=== PATIENT | male | born 2000 | race Hispanic/Latino ===

== ENCOUNTER 2024-05-04 01:24 | Emergency (ER) | payer OTHER, SELFPAY ==
--- OUTSIDE RECORDS SUMMARY | 2024-05-04 01:28 | XMS REPORT | Continuity of Care Document ---
Author Name Unknown Address [address] [place] [address] [address] [place] [address] [address] [facility] Address [address] [facility] 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 Ordering Clinician Indication Dosage Frequency Signature (SIG) Comments Components Source amlodipine 5 mg tablet 07-15 00:00: 00 Yes 1mg Sandeep Parra Unithroid 125 mcg tablet 07-15 00:00: 00 Yes 1mcg Sandeep Parra amlodipine 5 mg tablet - 00:00: 00 Yes mg Sandeep Parra Unithroid 125 mcg tablet 1- 00:00: 00 Yes mcg Sandeep Parra TAKE 1 TABLET BY MOUTH EVERY DAY 2022-02 0 00:00: 00 Yes 5 Sandeep Parra UNITHROID 125MCG 2022-02 0-23 00:00: 00 Yes Sandeep Parra UNITHROID 125MCG 07-24 00:00: 00 Yes Sandeep Parra TAKE 1 TABLET BY MOUTH EVERY DAY - 00:00: 00 03-23 00:00 :00 No 125 Sandeep Parra TAKE 1 TABLET BY MOUTH EVERY DAY 6- 00:00: 00 03-23 00:00 :00 No 5 Sandeep Parra LEVOTHYROXI N 125MCG 3-25 00:00: 00 Yes [id number] Sandeep Parra TAKE 1 TABLET BY MOUTH EVERY DAY 3-09 00:00: 00 03-23 00:00 :00 No 5 Sandeep Deb Parra TAKE 1 TABLET BY MOUTH EVERY DAY -09 00:00: 00 03-23 00:00 :00 No 125 Sandeep Parra TAKE 1 TABLET BY MOUTH EVERY DAY 2-23 00:00: 00 03-23 00:00 :00 No 5 Sandeep Parra TAKE 1 TABLET BY MOUTH TWICE A DAY WITH FOOD 0 1-11 00:00: 00 Yes Sandeep Parra AMLODIPINE 5MG 1-05 00:00: 00 03-23 00:00 :00 No 5 Sandeep Parra TAKE 1 TABLET BY MOUTH EVERY DAY 1- 00:00: 00 Yes Sandeep Deb Parra Dose Unknown 2021-02 2-13 00:00: 00 Yes Sandeep Parra TAKE 1 TABLET DAILY. 2021-02 2- 00:00: 00 03-23 00:00 :00 No Sandeep Deb Parra Dose Unknown 2021-02 2-13 00:00: 00 03-23 00:00 :00 No Sandeep F Fidel Dose Unknown 2021-02 2-13 00:00: 00 03-23 00:00 :00 No Sandeep F Fidel Dose Unknown 2021-02 2-08 00:00: 00 Yes Sandeep Deb Parra Dose Unknown 8-31 00:00: 00 Yes Sandeep Deb Parra Dose Unknown 8-08 00:00: 00 Yes Sandeep Parra levothyroxi ne 125 mcg tablet 0 9-17 00:00: 00 Yes 1mcg Sandeep Parra levothyroxi ne 125 mcg tablet 0 7-21 00:00: 00 Yes 1mcg Sandeep Parra Protonix 40 mg tablet,krishna yed release 5-07 00:00: 00 Yes 1mg Sandeep Parra levothyroxi ne 125 mcg tablet 0 5-07 00:00: 00 Yes 1mcg Sandeep Parra Vital Signs Vital Name Observation Time Observation Value Comments S ource Weight Measured 2023-07-16 10:13:00 253.20 pounds Sandeep Deb Fidel Height Measured 2023-07-16 10:13:00 69.88 inches Sandeep Parra Body Temperature 2023-07-16 10:13:00 98.30 degrees Sandeep F Fidel Heart Rate 2023-07-16 10:13:00 98.00 /min Liberty en F Fidel Respiratory Rate 2023-07-16 10:13:00 18.00 /min Sandeep F Fidel BP Systolic 2023-07-16 10:13:00 140 mm[Hg] Step hen F Fidel BP Diastolic 2023-07-16 10:13:00 95 mm[Hg] Joe phen F Fidel BP Systolic 2022-12-15 13:30:00 130 mm[Hg] Step hen F Fidel BP Diastolic 2022-12-15 13:30:00 85 mm[Hg] Joe phen F Fidel Weight Measured 2022-12-15 13:30:00 250.40 pounds Sandeep F Fidel Height Measured 2022-12-15 13:30:00 69.88 inches Sandeep F Fidel Body Temperature 2022-12-15 13:30:00 98.10 degrees Sandeep F Fidel Heart Rate 2022-12-15 13:30:00 104.00 /min Step hen F Fidel Respiratory Rate 2022-12-15 13:30:00 19.00 /min Sandeep F Fidel BP Systolic 2022-07-24 09:28:00 136 mm[Hg] Step hen F Fidel BP Diastolic 2022-07-24 09:28:00 87 mm[Hg] Joe phen F Fidel Weight Measured 2022-07-24 09:28:00 253.80 pounds Sandeep F Fidel Height Measured 2022-07-24 09:28:00 69.88 inches Sandeep F Fidel Body Temperature 2022-07-24 09:28:00 98.20 degrees Sandeep F Fidel Heart Rate 2022-07-24 09:28:00 82.00 /min Liberty en F Fidel Respiratory Rate 2022-07-24 09:28:00 17.00 /min Sandeep F Fidel BP Systolic 2022-04-26 09:28:00 138 mm[Hg] Step hen F Fidel BP Diastolic 2022-04-26 09:28:00 93 mm[Hg] Joe phen F Fidel Weight Measured 2022-04-26 09:28:00 254.80 pounds Sandeep F Fidel Height Measured 2022-04-26 09:28:00 69.88 inches Sandeep F Fidel Body Temperature 2022-04-26 09:28:00 98.30 degrees Sandeep F Fidel Heart Rate 2022-04-26 09:28:00 98.00 /min Liberty en F Fidel Respiratory Rate 2022-04-26 09:28:00 17.00 /min Sandeep F Fidel BP Systolic 2022-01-30 08:22:00 147 mm[Hg] Step hen F Fidel BP Diastolic 2022-01-30 08:22:00 100 mm[Hg] Joe phen F Fidel Weight Measured 2022-01-30 08:22:00 252.20 pounds Sandeep F Fidel Height Measured 2022-01-30 08:22:00 69.88 inches Sandeep F Fidel Body Temperature 2022-01-30 08:22:00 97.40 degrees Sandeep F Fidel Heart Rate 2022-01-30 08:22:00 91.00 /min Liberty en F Fidel Respiratory Rate 2022-01-30 08:22:00 17.00 /min Sandeep F Fidel Weight Measured 2021-09-26 10:29:00 251.80 pounds Sandeep F Fidel Height Measured 2021-09-26 10:29:00 69.88 inches Sandeep F Fidel Body Temperature 2021-09-26 10:29:00 98.80 degrees Sandeep F Fidel Heart Rate 2021-09-26 10:29:00 105.00 /min Step hen F Fidel Respiratory Rate 2021-09-26 10:29:00 18.00 /min Sandeep F Fidel BP Systolic 2021-09-26 10:29:00 147 mm[Hg] Step hen F Fidel BP Diastolic 2021-09-26 10:29:00 99 mm[Hg] Joe phen F Fidel BP Systolic 2021-08-03 09:00:00 138 mm[Hg] Step hen F Fidel BP Diastolic 2021-08-03 09:00:00 89 mm[Hg] Joe phen F Fidel Weight Measured 2021-08-03 09:00:00 251.60 pounds Sandeep F Fidel Height Measured 2021-08-03 09:00:00 69.88 inches Sandeep F Fidel Body Temperature 2021-08-03 09:00:00 97.40 degrees Sandeep F Fidel Heart Rate 2021-08-03 09:00:00 79.00 /min Liberty en F Fidel Respiratory Rate 2021-08-03 09:00:00 16.00 /min Sandeep F Fidel BP Systolic 2020-11-02 08:15:00 Step hen F Fidel BP Diastolic 2020-11-02 08:15:00 Joe phen F Fidel Weight Measured 2020-11-02 08:15:00 259.00 pounds Sandeep F Fidel Height Measured 2020-11-02 08:15:00 69.88 inches Sandeep F Fidel Body Temperature 2020-11-02 08:15:00 98.30 degrees Sandeep F Fidel Heart Rate 2020-11-02 08:15:00 86.00 /min Liberty en F Fidel Respiratory Rate 2020-11-02 08:15:00 16.00 /min Sandeep F Fidel BP Systolic 2020-09-07 16:17:00 147 mm[Hg] Step hen F Fidel BP Diastolic 2020-09-07 16:17:00 91 mm[Hg] Joe phen F Fidel Weight Measured 2020-09-07 16:17:00 261.40 pounds Sandeep F Fidel Height Measured 2020-09-07 16:17:00 69.88 inches Sandeep F Fidel Body Temperature 2020-09-07 16:17:00 98.00 degrees Sandeep F Fidel Heart Rate 2020-09-07 16:17:00 115.00 /min Step hen F Fidel Respiratory Rate 2020-09-07 16:17:00 16.00 /min Sandeep F Fidel BP Systolic 2020-06-24 15:02:00 140 mm[Hg] Step hen F Fidel BP Diastolic 2020-06-24 15:02:00 93 mm[Hg] Joe phen F Fidel Weight Measured 2020-06-24 15:02:00 254.60 pounds Sandeep F Fidel Height Measured 2020-06-24 15:02:00 69.88 inches Sandeep F Fidel Body Temperature 2020-06-24 15:02:00 98.60 degrees Sandeep F Fidel Heart Rate 2020-06-24 15:02:00 112.00 /min Step hen F Fidel Respiratory Rate 2020-06-24 15:02:00 17.00 /min Sandeep F Fidel Encounters Start Date/Time End Date/Time Encounter Type Admission Type Attending [facility] Care Department Encounter ID Source 2023-07-16 10:10:21 2023-07-16 10:10:21 Outpatient SFA SFA [id number] Sandeep Parra 2023-07-16 00:00:00 2023-07-16 00:00:00 Outpatient Visit SFA [id number] Sandeep Parra 2022-12-15 13:24:36 2022-12-15 13:24:36 Outpatient SFA SFA [id number] Sandeep Parra 2022-07-24 09:21:35 2022-07-24 09:21:35 Outpatient SFA SFA [id number] Sandeep Parra 2022-04-26 09:24:20 2022-04-26 09:24:20 Outpatient SFA SFA [id number] Sandeep Parra 2022-01-30 08:15:49 2022-01-30 08:15:49 Outpatient SFA [id number] [id number] Sandeep Parra Results Test Description Test Time Test Comments Results Result Co mments Source LIPID [id number] 04:53:33* Test Item Value Reference Range Interpretation Comme nts CHOLESTEROL (test code = 2210) 194 MG/DL <200 TRIGLYCERIDES (test code = 2232) 185 MG/DL <150 H HDL CHOLESTEROL (test code = 2220) 47 MG/DL >39 CALC LDL CHOL (test code = 2237) 116 MG/DL <100 H NOTE: CALCULATED LDL IS BASED ON SHANNAN-ZHOU METHOD WHICHINCLUDES ADJUSTABLE TRIGLYCERIDE:VLDL CHOLESTEROL RATIO.THIS FACTOR VARIES BY MEASURED TRIGLYCERIDE AND NON-HDLCHOLESTEROL CONCENTRATIONS WITH INCREASED CALCULATED LDL SEENIN HIGHER TRIGLYCERIDE OR LOWER NON-HDL SPECIMENS. FOR MOREINFORMATION, SEE CLIENT ANNOUNCEMENT AT [email or web address] RISK RATIO LDL/HDL (test code = 2238) 2.47 RATIO <3.55 COMPREHENSIVE METABOLIC [id number] 04:53:33* Test Item Value Reference Range Interpretation Comme nts GLUCOSE (test code = 2217) 94 MG/DL 70-99 BUN (test code = 2208) 9 MG/DL 6-20 CREATININE (test code = 2214) 0.88 MG/DL 0.80-1.40 eGFR (2020 CKD-EPI) (test code = 87062) 124 ML/MIN/1.73 >60 CALC BUN/CREAT (test code = 2234) 10 RATIO 6-28 SODIUM (test code = 2230) 140 MEQ/L 133-146 POTASSIUM (test code = 2227) 3.9 MEQ/L 3.5-5.4 CHLORIDE (test code = 2214) 103 MEQ/L 95-107 CARBON DIOXIDE (test code = 2205) 24 MEQ/L 19-31 CALCIUM (test code = 2208) 9.9 MG/DL 8.5-10.5 PROTEIN, TOTAL (test code = 2228) 7.6 G/DL 6.1-8.3 ALBUMIN (test code = 2200) 4.9 G/DL 3.5-5.2 CALC GLOBULIN (test code = 2239) 2.7 G/DL 1.9-3.7 CALC A/G RATIO (test code = 2233) 1.8 RATIO 1.0-2.6 BILIRUBIN, TOTAL (test code = 2206) 0.4 MG/DL <=1.2 ALKALINE PHOSPHATASE (test code = 2203) 111 U/L 40-121 AST (test code = 2217) 13 U/L 9-50 ALT (test code = 2219) 23 U/L 5-50 UNLESS OTHERWISE INDICATED, ALL TESTING PERFORMED AT [facility] [address] [place] [address] MINUTE CLERK: NU DIXON M.D. CLIA NUMBER [id number] [facility] [place]. [id number] HEMOGLOBIN [id number] 04:52:13* Test Item Value Reference Range Interpretation Comme [facility] HEMOGLOBIN A1c (test code = 09852) 5.2 % 4.2-5.6 TSH, THIRD [id number] 00:00:00* Test Item Value Reference Range Interpretation Comme [facility] TSH, THIRD GENERATION (test code = 2821) 1.200 UIU/ML Sandeep ParraHEMOGLOBIN [id number] 00:00:00* Test Item Value Reference Range Interpretation Comme [facility] HEMOGLOBIN A1c (test code = 67248) 5.2 % Sandeep Boyd FidelLIPID [id number] 00:00:00* Test Item Value Reference Range Interpretation Comme [facility] CHOLESTEROL (test code = 2210) 194 MG/DL TRIGLYCERIDES (test code = 2232) 185 MG/DL HDL CHOLESTEROL (test code = 2220) 47 MG/DL CALC LDL CHOL (test code = 2237) 116 MG/DL RISK RATIO LDL/HDL (test cod e = 2238) 2.47 RATIO Sandeep ParraCOMPREHENSIVE METABOLIC [id number] 00:00:00* Test Item Value Reference Range Interpretation Comme nts GLUCOSE (test code = 2217) 94 MG/DL BUN (test code = 2208) 9 MG/DL CREATININE (test code = 2214) 0.88 MG/DL eGFR (2020 CKD-EPI) (test code = 93374) 124 ML/MIN/1.73 CALC BUN/CREAT (test code = 2235) 10 RATIO SODIUM (test code = 2231) 140 MEQ/L POTASSIUM (test code = 2228) 3.9 MEQ/L CHLORIDE (test code = 2215) 103 MEQ/L CARBON DIOXIDE (test code = 2206) 24 MEQ/L CALCIUM (test code = 2209) 9.9 MG/DL PROTEIN, TOTAL (test code = 2229) 7.6 G/DL ALBUMIN (test code = 2201) 4.9 G/DL CALC GLOBULIN (test code = 2240) 2.7 G/DL CALC A/G RATIO (test code = 2234) 1.8 RATIO BILIRUBIN, TOTAL (test code = 2207) 0.4 MG/DL ALKALINE PHOSPHATASE (test code = 2204) 111 U/L AST (test code = 2218) 13 U/L ALT (test code = 2219) 23 U/L Sandeep Boyd LarsH, THIRD [id number] 06:31:30* Test Item Value Reference Range Interpretation Comme nts TSH, THIRD GENERATION (test code = 2821) 1.740 UIU/ML 0.400-4.100 LIPID [id number] 03:24:43* Test Item Value Reference Range Interpretation Comme nts CHOLESTEROL (test code = 2210) 186 MG/DL <200 TRIGLYCERIDES (test code = 2232) 171 MG/DL <150 H HDL CHOLESTEROL (test code = 2220) 48 MG/DL >39 CALC LDL CHOL (test code = 2237) 109 MG/DL <100 H NOTE: CALCULATED LDL IS BASED ON SHANNAN-ZHOU METHOD WHICHINCLUDES ADJUSTABLE TRIGLYCERIDE:VLDL CHOLESTEROL RATIO.THIS FACTOR VARIES BY MEASURED TRIGLYCERIDE AND NON-HDLCHOLESTEROL CONCENTRATIONS WITH INCREASED CALCULATED LDL SEENIN HIGHER TRIGLYCERIDE OR LOWER NON-HDL SPECIMENS. FOR MOREINFORMATION, SEE CLIENT ANNOUNCEMENT AT [email or web address] /CalcLDL-C RISK RATIO LDL/HDL (test code = 2237) 2.27 RATIO <3.55 COMPREHENSIVE METABOLIC [id number] 03:24:43* Test Item Value Reference Range Interpretation Comme nts GLUCOSE (test code = 7) 94 MG/DL 70-99 BUN (test code = 2207) 9 MG/DL 6-20 CREATININE (test code = 2213) 0.87 MG/DL 0.80-1.40 eGFR (2020 CKD-EPI) (test code = 61149) 125 ML/MIN/1.73 >60 CALC BUN/CREAT (test code = 5) 10 RATIO 6-28 SODIUM (test code = 2230) 141 MEQ/L 133-146 POTASSIUM (test code = 2228) 4.0 MEQ/L 3.5-5.4 CHLORIDE (test code = 5) 103 MEQ/L 95-107 CARBON DIOXIDE (test code = 6) 25 MEQ/L 19-31 CALCIUM (test code = 220) 9.7 MG/DL 8.5-10.5 PROTEIN, TOTAL (test code = 222) 7.6 G/DL 6.1-8.3 ALBUMIN (test code = 220) 4.8 G/DL 3.5-5.2 CALC GLOBULIN (test code = 2240) 2.8 G/DL 1.9-3.7 CALC A/G RATIO (test code = 223) 1.7 RATIO 1.0-2.6 BILIRUBIN, TOTAL (test code = 220) 0.5 MG/DL See_Comment [Automated me ssage] The system which generated this result transmitted reference range: <=1.2. The reference range was not used to interpret this result as normal/abnormal. ALKALINE PHOSPHATASE (test code = 2203) 117 U/L 42-122 AST (test code = 2218) 14 U/L 9-50 ALT (test code = 2219) 19 U/L 5-50 UNLESS OTHERWISE INDICATED, ALL TESTING PERFORMED AT [facility] [address] [place] [id number] MINUTE CLERK: NU DIXON M.D. CLIA NUMBER [id number] [facility] [place]. [id number] TSH, THIRD [id number] 00:00:00* Test Item Value Reference Range Interpretation Comme nts TSH, THIRD GENERATION (test code = 2821) 1.740 UIU/ML Sandeep ParraLIPID [id number] 00:00:00* Test Item Value Reference Range Interpretation Comme nts CHOLESTEROL (test code = 2210) 186 MG/DL TRIGLYCERIDES (test code = 2232) 171 MG/DL HDL CHOLESTEROL (test code = 2220) 48 MG/DL CALC LDL CHOL (test code = 2237) 109 MG/DL RISK RATIO LDL/HDL (test cod e = 2238) 2.27 RATIO Sandeep ParraCOMPREHENSIVE METABOLIC [id number] 00:00:00* Test Item Value Reference Range Interpretation Comme nts GLUCOSE (test code = 2217) 94 MG/DL BUN (test code = 2208) 9 MG/DL CREATININE (test code = 2214) 0.87 MG/DL eGFR (2020 CKD-EPI) (test code = 26693) 125 ML/MIN/1.73 CALC BUN/CREAT (test code = 2235) 10 RATIO SODIUM (test code = 2231) 141 MEQ/L POTASSIUM (test code = 2228) 4.0 MEQ/L CHLORIDE (test code = 2215) 103 MEQ/L CARBON DIOXIDE (test code = 2206) 25 MEQ/L CALCIUM (test code = 2209) 9.7 MG/DL PROTEIN, TOTAL (test code = 2229) 7.6 G/DL ALBUMIN (test code = 2201) 4.8 G/DL CALC GLOBULIN (test code = 2240) 2.8 G/DL CALC A/G RATIO (test code = 2234) 1.7 RATIO BILIRUBIN, TOTAL (test code = 2207) 0.5 MG/DL ALKALINE PHOSPHATASE (test code = 2204) 117 U/L AST (test code = 2218) 14 U/L ALT (test code = 2219) 19 U/L Sandeep SousaH, THIRD [id number] 06:16:45* Test Item Value Reference Range Interpretation Comme nts TSH, THIRD GENERATION (test code = 2821) 1.960 UIU/ML 0.400-4.100 UNLESS OTHERWISE INDICATED, ALL TESTING PERFORMED [facility] [address] [place] [address] MINUTE CLERK: BRIDGET LLAMAS M.D. CLIA NUMBER [id number] [place] [id number] LIPID [id number] 05:20:19* Test Item Value Reference Range Interpretation Comme nts CHOLESTEROL (test code = 2210) 174 MG/DL <200 TRIGLYCERIDES (test code = 2232) 157 MG/DL <150 H HDL CHOLESTEROL (test code = 2220) 42 MG/DL >39 CALC LDL CHOL (test code = 2237) 105 MG/DL <100 H NOTE: CALCULATED LDL IS BASED ON SHANNAN-ZHOU METHOD WHICHINCLUDES ADJUSTABLE TRIGLYCERIDE:VLDL CHOLESTEROL RATIO.THIS FACTOR VARIES BY MEASURED TRIGLYCERIDE AND NON-HDLCHOLESTEROL CONCENTRATIONS WITH INCREASED CALCULATED LDL SEENIN HIGHER TRIGLYCERIDE OR LOWER NON-HDL SPECIMENS. FOR MOREINFORMATION, SEE CLIENT ANNOUNCEMENT AT [email or web address] RISK RATIO LDL/HDL (test code = 2238) 2.50 RATIO <3.55 LIPID [id number] 00:00:00* Test Item Value Reference Range Interpretation Comme nts CHOLESTEROL (test code = 2210) 174 MG/DL TRIGLYCERIDES (test code = 2232) 157 MG/DL HDL CHOLESTEROL (test code = 2220) 42 MG/DL CALC LDL CHOL (test code = 2237) 105 MG/DL RISK RATIO LDL/HDL (test cod e = 2238) 2.50 RATIO Sandeep Gonzalez THIRD [id number] 00:00:00* Test Item Value Reference Range Interpretation Comme nts TSH, THIRD GENERATION (test code = 2821) 1.960 UIU/ML Sandeep Gonzalez, THIRD [id number] 06:24:23* Test Item Value Reference Range Interpretation Comme nts TSH, THIRD GENERATION (test code = 2821) 2.010 UIU/ML 0.400-4.100 UNLESS OTHERWISE INDICATED, ALL TESTING PERFORMED [facility] [address] [place] [address] MINUTE CLERK: BRIDGET LLAMAS M.D. CLIA NUMBER [id number] [place]. [id number] 00:00:00* Test Item Value Reference Range Interpretation Comme hilario TSH, THIRD GENERATION (test code = 2821) 2.010 UIU/ML Sandeep [id number] 00:00:00* Test Item Value Reference Range Interpretation Comme nts TSH, THIRD GENERATION (test code = 2821) 0.964 UIU/ML Sandeep ParraHEMOGLOBIN [id number] 00:00:00* Test Item Value Reference Range Interpretation Comme hilario HEMOGLOBIN A1c (test code = 98034) 5.3 % Sandeep ParraSARS-CoV-2 (COVID-19) by RT-PCR (HIGH RISK)2020-10-20 00:00:00* Test Item Value Reference Range Interpretation Comme hilario SARS-CoV-2 INTERPRETATION (t est code = 81988) NEGATIVE SOURCE (test code = 16936) NOT SPECIFIED Sandeep ParraCOMPREHENSIVE METABOLIC [id number] 00:00:00* Test Item Value Reference Range Interpretation Comme nts GLUCOSE (test code = 2217) 96 MG/DL BUN (test code = 2208) 10 MG/DL CREATININE (test code = 2214) 0.94 MG/DL eGFR AMER. (test cod e = 82814) 135 ML/MIN/1.73 eGFR NON- AMER. (test code = 64599) 116 ML/MIN/1.73 CALC BUN/CREAT (test code = 2235) 11 RATIO SODIUM (test code = 2231) 145 MEQ/L POTASSIUM (test code = 2228) 4.4 MEQ/L CHLORIDE (test code = 2215) 104 MEQ/L CARBON DIOXIDE (test code = 2206) 24 MEQ/L CALCIUM (test code = 2209) 9.4 MG/DL PROTEIN, TOTAL (test code = 2229) 7.9 G/DL ALBUMIN (test code = 2201) 5.0 G/DL CALC GLOBULIN (test code = 2240) 2.9 G/DL CALC A/G RATIO (test code = 2234) 1.7 RATIO BILIRUBIN, TOTAL (test code = 2207) 0.3 MG/DL ALKALINE PHOSPHATASE (test code = 2204) 90 U/L AST (test code = 2218) 30 U/L ALT (test code = 2219) 26 U/L Sandeep [id number] 00:00:00* Test Item Value Reference Range Interpretation Comme nts LIPASE (test code = 2057) 25 U/L Sandeep [id number] 00:00:00* Test Item Value Reference Range Interpretation Comme nts AMYLASE (test code = 2205) 56 U/L Sandeep ParraCBC W/AUTO [id number] 00:00:00* Test Item Value Reference Range Interpretation Comme nts WBC (test code = 1001) 7.6 K/UL RBC (test code = 1002) 5.32 M/UL HEMOGLOBIN (test code = 1003) 15.8 G/DL HEMATOCRIT (test code = 1004) 46.3 % MCV (test code = 1005) 87.0 fL MCH (test code = 1006) 29.7 PG MCHC (test code = 1007) 34.1 G/DL RDW (test code = 1038) 12.9 % NEUTROPHILS (test code = 1008) 61.9 % LYMPHOCYTES (test code = 1010) 24.7 % MONOCYTES (test code = 1011) 12.5 % EOSINOPHILS (test code = 1012) 0.1 % BASOPHILS (test code = 1013) 0.4 % IMMATURE GRANULOCYTES (test code = 1036) 0.4 % NUCLEATED RBCS (test code = 1065) 0.0 /100WBC'S PLATELET COUNT (test code = 1015) 202 K/UL ABSOLUTE NEUTROPHILS (test c ode = 1066) 4.68 K/UL ABSOLUTE LYMPHOCYTES (test c ode = 1067) 1.87 K/UL ABSOLUTE MONOCYTES (test cod e = 1068) 0.95 K/UL ABSOLUTE EOSINOPHILS (test c ode = 1040) 0.01 K/UL ABSOLUTE BASOPHILS (test cod e = 1069) 0.03 K/UL ABS IMMATURE GRANULOCYTES (t est code = 1020) 0.03 K/UL ABS NUCLEATED RBCS (test cod e = 67050) 0.00 K/UL Sandeep F Fidel Notes Date/Time Note Provider Source Sandeep Parra [facility]
[2024-05-04] MEDS ORDERED: ONDANSETRON 4 MG/2 ML VIAL ONE (01:38)
[2024-05-04] MEDS ORDERED: KETOROLAC 30 MG/ML INJ ONE (01:38)
[2024-05-04] MEDS ORDERED: NA CHLORIDE 0.9% 1,000 ML ONE (01:39)
[2024-05-04 02:42] LABS: Absolute Lymphocytes (CBC) 2.2 K/uL (0.7-4.9); Absolute Monocytes 0.9 K/uL (0.1-1.3); Absolute Neutrophil 9.7 K/uL (1.8-8.0); Basophils % 0.1 % (0-1.3); Eosinophils % 0.2 % (0-4.4); Hematocrit 45.9 % (39.6-49.0); Hemoglobin 15.7 g/dL (13.6-17.9); MCH 30.1 pg (27.0-35.0); MCHC 34.3 g/dL (32.0-36.0); MPV 9.4 fL (7.6-11.3); Monocytes % 7.3 % (3.3-12.3); Neutrophils % 75.4 % (41.7-73.7); Nucleated Red Blood Cells % 0.1 % (0-0); Platelets 221 thou/uL (152-406); RBC Red Blood Cell Count 5.22 M/uL (4.33-5.43); Red Cell Distribution Width 13.3 % (12.1-15.2)
--- NOTE | 2024-05-04 02:48 | EDPHYS ---
Physician Documentation [facility] Name: Mac Prado Age: 23 yrs Sex: Male : 2000 Arrival Date: 05/04/2024 Time: 01:24 Bed 15 Private MD: ED Physician Amadeo Bell HPI: 05/04 01:32 This 23 yrs old Male presents to ER via Unassigned with complaints of Possible ec2 Kidney Stone, Low Back Pain. 01:32 Patient arrives today for evaluation of left CVA pain. Patient reports familial history ec2 of nephrolithiasis. Patient reports no abdominal pain, does endorse some nausea, no vomiting. No diarrheal symptoms. Patient reports no previous abdominal surgeries. Reports history of hypertension and hypothyroidism. Patient reports no urinary complaints.. Historical: - Allergies: 01:34 No Known Allergies; cp4 - Immunization history:: Adult Immunizations up to date. - Infectious Disease History:: Denies. - Social history:: Smoking status: Patient denies any tobacco usage or history of. ROS: 01:32 Constitutional: as per hpi ec2 Exam: 01:32 Constitutional: GEN: NAD Head: atraumatic Eyes: EOMI Ears: External ears are ec2 normal. CV: regular rate LUNGS: no respiratory distress ABD: non-distended, soft, left CVA TTP SKIN: no evidence of rashes MSK: no evidence of trauma Vital Signs: 01:33 BP 143 / 93; Pulse 57; Resp 16; Temp 98.4; Pulse Ox 100% ; Weight 111.13 kg; Height 5 cp4 ft. 9 in. ; Pain 10/10; 02:58 BP 134 / 85; Pulse 77; Resp 18; Pulse Ox 100% ; cp4 01:33 Body Mass Index 36.18 (111.13 kg, 175.26 cm) cp4 01:33 Pain Scale: Adult cp4 MDM: 01:31 Medical Screening Exam initiated ec2 01:33 Data reviewed: vital signs, nurses notes. ED course: Patient arrives today for left ec2 flank pain. Examination yields left CVA TTP. Will obtain lab work, urine studies, CT imaging. DDx includes UTI, nephrolithiasis.. 01:49 ED course: On my interpretation there is approximately 3 mm ureteral calculus. Rest of ec2 read per radiology.. 02:48 ED course: Reassessment patient is well-appearing no acute distress. Will discharge ec2 home. Return precautions given. Presentation consistent with ureteral calculus.. 05/04 01:31 Order name: CBC with Diff ec2 05/04 01:31 Order name: CMP ec2 05/04 01:31 Order name: Lipase ec2 05/04 01:31 Order name: UAM ec2 05/04 01:31 Order name: CT Abd/Pelvis - Without Contrast ec2 05/04 01:31 Order name: IV Saline Lock; Complete Time: 01:57 ec2 05/04 01:31 Order name: Labs collected and sent; Complete Time: 01:57 ec2 Administered Medications: 01:57 Drug: TORadol - Ketorolac IVP 15 mg IVP once Route: IVP; Site: right antecubital; cp4 02:57 Follow up: Response: No adverse reaction; Pain is decreased cp4 01:57 Drug: Ondansetron IVP 4 mg IVP once; over 2 minutes Route: IVP; Site: right antecubital;cp4 02:57 Follow up: Response: No adverse reaction cp4 01:57 Drug: NS 0.9% IV 1000 ml IV at 1 bolus Per protocol; to be given as a bolus over 60 cp4 minutes Route: IV; Rate: 1 bolus; Site: right antecubital; 02:57 Follow up: IV Status: Completed infusion cp4 02:57 Drug: HYDROcodone-acetaminophen PO 5 mg-325 mg 1 tabs PO once Route: PO; cp4 02:58 Follow up: Response: No adverse reaction cp4 Disposition Summary: 05/04/24 02:48 Discharge Ordered Notes: Location: Home ec2 Condition: Stable ec2 Diagnosis - Calculus of ureter ec2 Followup: ec2 - With: Neptali Espinoza MD - When: - Reason: Recheck today's complaints, Re-evaluation by your physician Discharge Instructions: - Discharge Summary Sheet ec2 - Kidney Stones, [id number] ec2 Forms: - Medication Reconciliation Form ec2 - Antibiotic Education ec2 - Prescription Opioid Use ec2 - Patient Portal Instructions ec2 - Leadership Thank You Letter ec2 Prescriptions: - tamsulosin 0.4 mg Oral capsule - take 1 capsule ORAL route daily; 14 capsule; Refills: 0, Product Selection ec2 Permitted - Tylenol-Codeine #3 300mg-30mg Oral tablet - take 1 tablet ORAL route every 4 hours As needed; 16 tablet; Refills: 0, ec2 Product Selection Permitted Signatures: Dispatcher [employer] EDMS Amadeo Bell MD MD ec2 Yumiko Kowalski cp4 Corrections: (The following items were deleted from the chart) 01:32 01:32 CBC+H.LAB.BRZ ordered. EDMS EDMS 01:32 01:32 COMPREHENSIVE METABOLIC PANEL+C.LAB.BRZ ordered. EDMS EDMS 01:32 01:32 LIPASE+C.LAB.BRZ ordered. EDMS EDMS 01:32 01:32 Urinalysis W/Microscopic+U.LAB.BRZ ordered. EDMS EDMS
--- NOTE | 2024-05-04 02:48 | ER ---
Nurse's Notes [facility] Name: Mac Prado Age: 23 yrs Sex: Male : 2000 Arrival Date: 05/04/2024 Time: : Bed 15 Private MD: Diagnosis: Calculus of ureter Presentation: 05/04 01:33 Chief complaint: Patient states: possible kidney stone. Reports left flank pain. cp4 Coronavirus screen: Client denies travel out of the [place] in the last 14 days. At this time, the client does not indicate any symptoms associated with coronavirus-19. Ebola Screen: Patient negative for fever greater than or equal to 101.5 degrees Fahrenheit, and additional compatible Ebola Virus Disease symptoms Patient denies exposure to infectious person. Patient denies travel to an Ebola-affected area in the 21 days before illness onset. No symptoms or risks identified at this time. Initial Sepsis Screen: Does the patient meet any 2 criteria? No. Patient's initial sepsis screen is negative. Does the patient have a suspected source of infection? No. Patient's initial sepsis screen is negative. Risk Assessment: Do you want to hurt yourself or someone else? Patient reports no desire to harm self or others. Onset of symptoms was May 03, 2024. 01:33 Method Of Arrival: Ambulatory cp4 01:33 Acuity: KEVIN 3 cp4 Triage Assessment: :34 General: Appears in no apparent distress. uncomfortable, Behavior is calm, cooperative, cp4 appropriate for age. Pain: Complains of pain in left flank. EENT: No signs and/or symptoms were reported regarding the EENT system. Neuro: Level of Consciousness is awake, alert, obeys commands, Oriented to person, place, time, situation. Cardiovascular: Patient's skin is warm and dry. Respiratory: Airway is patent Respiratory effort is even, unlabored. GI: Abdomen is round non-distended, Bowel sounds present X 4 quads. Abd is soft and non tender X 4 quads. : No signs and/or symptoms were reported regarding the genitourinary system. Derm: No signs and/or symptoms reported regarding the dermatologic system. Musculoskeletal: No signs and/or symptoms reported regarding the musculoskeletal system. Historical: - Allergies: :34 No Known Allergies; cp4 - Immunization history:: Adult Immunizations up to date. - Infectious Disease History:: Denies. - Social history:: Smoking status: Patient denies any tobacco usage or history of. Screenin:36 [facility] ED Fall Risk Assessment (Adult) History of falling in the last 3 months, cp4 including since admission No falls in past 3 months (0 pts) Confusion or Disorientation No (0 pts) Intoxicated or Sedated No (0 pts) Impaired Gait No (0 pts) Mobility Assist Device Used No (0 pt) Altered Elimination No (0 pt) Score/Fall Risk Level 0 - 2 = Low Risk Oriented to surroundings, Maintained a safe environment, Assessed \T\ reinforced patient's understanding of fall precautions, Hourly rounding (assess needs \T\ fall precautionary measures) done. Abuse screen: Denies threats or abuse. Denies injuries from another. Nutritional screening: No deficits noted. Tuberculosis screening: No symptoms or risk factors identified. Assessment: 01:36 Reassessment: No changes from previously documented assessment. cp4 Vital Signs: 01:33 BP 143 / 93; Pulse 57; Resp 16; Temp 98.4; Pulse Ox 100% ; Weight 111.13 kg; Height 5 cp4 ft. 9 in. ; Pain 10/10; 02:58 BP 134 / 85; Pulse 77; Resp 18; Pulse Ox 100% ; cp4 01:33 Body Mass Index 36.18 (111.13 kg, 175.26 cm) cp4 01:33 Pain Scale: Adult cp4 ED Course: 01:26 Patient arrived in ED. [id number] 01:27 Amadeo Bell MD is Attending Physician. ec2 01:27 Yumiko Kowalski is Primary Nurse. cp4 01:34 Triage completed. cp4 01:34 Arm band placed on right wrist. Patient placed in waiting room. cp4 01:36 Bed in low position. Call light in reach. Side rails up X 1. cp4 01:36 No provider procedures requiring assistance completed. cp4 01:43 CT Abd/Pelvis - Without Contrast In Process Unspecified. EDMS 01:58 Initial lab(s) drawn, by me, sent to lab. Urine collected: clean catch specimen, clear. cp4 Inserted saline lock: 20 gauge in right antecubital area, using aseptic technique. Blood collected. Flushed with 10 mL NS. 02:48 Neptali Espinoza MD is Referral Physician. ec2 02:58 Provided Education on: kidney stone. cp4 02:58 intact, bleeding controlled, No redness/swelling at site. Pressure dressing applied. cp4 Administered Medications: 01:57 Drug: TORadol - Ketorolac IVP 15 mg IVP once Route: IVP; Site: right antecubital; cp4 02:57 Follow up: Response: No adverse reaction; Pain is decreased cp4 01:57 Drug: Ondansetron IVP 4 mg IVP once; over 2 minutes Route: IVP; Site: right antecubital;cp4 02:57 Follow up: Response: No adverse reaction cp4 01:57 Drug: NS 0.9% IV 1000 ml IV at 1 bolus Per protocol; to be given as a bolus over 60 cp4 minutes Route: IV; Rate: 1 bolus; Site: right antecubital; 02:57 Follow up: IV Status: Completed infusion cp4 02:57 Drug: HYDROcodone-acetaminophen PO 5 mg-325 mg 1 tabs PO once Route: PO; cp4 02:58 Follow up: Response: No adverse reaction cp4 Medication: 01:36 VIS not applicable for this client. cp4 Outcome: 02:48 Discharge ordered by . ec2 02:58 Discharged to home ambulatory, cp4 02:58 Condition: stable 02:58 Discharge instructions given to patient, family, Instructed on discharge instructions, follow up and referral plans. medication usage, Demonstrated understanding of instructions, follow-up care, medications, Prescriptions given X 2, 02:59 Patient left the ED. cp4 Signatures: Dispatcher [employer] Desiree Nelson [email or web address] Amadeo Bell MD MD ec2 Potter, Christina cp4
[2024-05-04 02:52] LABS: ALT/SGPT 28 U/L (16-61); Albumin 3.7 g/dL (3.4-5.0); Albumin/Globulin Ratio 0.9 (1.1-1.8); Alkaline Phosphatase 113 U/L (45-117); Anion Gap 12.4 mEq/L (5.0-15.0); BUN Blood Urea Nitrogen 15 mg/dL (7-18); Bicarbonate 24 mEq/L (21-32); Bilirubin Total 0.3 mg/dL (0.2-1.0); Glomerular Filtration Rate 94 ml/min (=/>90); Glucose Level 141 mg/dL (74-106); Lipase 35 U/L (13-75); Potassium 3.4 mEq/L (3.5-5.1); Protein, Total 7.7 g/dL (6.4-8.2); Sodium Level 138 mEq/L (136-145)
[2024-05-04] MEDS ORDERED: HYDROCODONE/APAP 5/325 MG TAB ONE (02:52)
[2024-05-04 02:53] LABS: AST/SGOT < 10 U/L (15-37)
[2024-05-04 02:55] LABS: Specific Gravity 1.027 (1.005-1.030); Sqamous Epithelial None Seen /HPF (None Seen); Urine Bacteria <20 /HPF (<20); Urine Bilirubin NEGATIVE (Negative); Urine Blood 2+ (Negative); Urine Clarity Clear (Clear); Urine Color Light-Yellow (Yellow); Urine Culture Reflex Order NOT NEEDED; Urine Glucose NEGATIVE (Negative); Urine Ketones NEGATIVE (Negative); Urine Micro Reflex YN NO BILL MICROSCOPIC; Urine Mucus Slight /HPF (None Seen); Urine Nitrite NEGATIVE (Negative); Urine Protein NEGATIVE (Negative); Urine RBC >50 /HPF (None Seen); Urine Urobilinogen Normal (Normal); Urine WBC <5 /HPF (<5); Urine pH 6.5 (5.0-7.0)
[2024-05-04 03:07] VITALS: TEMP 98.4; O2SAT 100
[2024-05-04 03:13] VITALS: BP 134/85
--- NOTE | 2024-05-04 06:10 | RAD REPORT ---
EXAM: CT Abdomen and Pelvis Without Intravenous Contrast CLINICAL HISTORY: L cva pain TECHNIQUE: Axial computed tomography images of the abdomen and pelvis without intravenous contrast. Sagittal a nd coronal reformatted images were created and reviewed. This CT exam was performed using one or more of the following dose reduction techniques: automated exposure control, adjustment of the mA a nd/or kV according to patient size, and/or use of iterative reconstruction technique. COMPARISON: No relevant prior studies available. FINDINGS: Lung bases: Unremarkable. No mass. No consolidation. ABDOMEN: Liver: Unremarkable. Gallbladder and bile ducts: Unremarkable. No calcified stones. No ductal dilation. Pancreas: Unremarkable. No ductal dilation. Spleen: Unremarkable. No splenomegaly. Adrenals: Unremarkable. No mass. Kidneys and ureters: Mild left hydroureteronephrosis. 3 mm distal left ureteral calculus (series 20 1 image 78, series 202 image 67 and series 203 image 86). Stomach and bowel: Unremarkable. No obstruction. No mucosal thickening. PELVIS: Appendix: Normal caliber appendix. No findings to suggest acute appendicitis. Bladder: Unremarkable. No stones. Reproductive: Unremarkable as visualized. ABDOMEN and PELVIS: Intraperitoneal space: Unremarkable. No free air. No significant fluid collection. Bones/joints: No acute fracture. No dislocation. Soft tissues: Unremarkable. Vasculature: Unremarkable. No abdominal aortic aneurysm. Lymph nodes: There is a prominent left iliac chain lymph node just distal to the bifurcation measur ing 15 mm in short axis. IMPRESSION: 1. Mildly obstructing 3 mm distal left ureteral calculus. 2. Nonspecific mildly enlarged left iliac chain lymph node. 3. Other findings as above. Electronically signed by: Linh Kang MD 05/04/2024 02:43 AM [facility] Due to temporary technical issues with the PACS/[employer] reporting system, reports are being edelmira d by the in-house radiologist without review as a courtesy to ensure prompt reporting the interpreting radiologist is fully responsible for the content of the report. Transcribed Date/Time: 05/04/2024 6:10 AM
== END 2024-05-04 02:59 | disposition home or self-care (01) ==
LOC: ER 01:24
DX: N20.1 Calculus of ureter (principal)
CPT/HCPCS: 96361; 85025; 81001; 36415; 83690; 80053; 74176; 96375; 96374; 99284; J2405; J7030